=== PATIENT | female | born 1965 | race Asian ===

== ENCOUNTER 2019-10-17 22:05 | Emergency (ER) | payer SELFPAY ==
[~2019-10-17] VITALS: Ht 160 cm; Wt 59.9 kg
[2019-10-17 22:10] VITALS: Ht 160 cm; Wt 59.9 kg
[2019-10-17 23:54] LABS: BASOPHIL % 0.9 % (0-2); RED CELL DISTRIBUTION WIDTH 12.8 % (11.5-14.5)
[2019-10-17 23:55] LABS: PLATELET COUNT 128 x10^3mcL (130-400)
[2019-10-18 00:07] LABS: CALCIUM 9.4 mg/dL (8.5-10.1); CARBON DIOXIDE 26.8 mmol/L (21-32); CHLORIDE SERUM 107 mmol/L (98-107); CREATININE SERUM 0.7 mg/dL (0.6-1.0); GFR1 > 60 mL/min; GLUCOSE SERUM 105 mg/dL (74-106); POTASSIUM SERUM 4.2 mmol/L (3.5-5.1); SODIUM SERUM 143 mmol/L (136-145)
[2019-10-18 00:12] LABS: ALBUMIN 4.2 g/dL (3.4-5.0); ALKALINE PHOSPHATASE 89 U/L (46-116); ALT/SGPT 24 U/L (14-59); AST/SGOT 12 U/L (15-37); BILIRUBIN TOTAL 0.56 mg/dL (0.20-1.00); TOTAL PROTEIN, SERUM 8.1 g/dL (6.4-8.2)
[2019-10-18 00:26] LABS: T4(THYROXINE) 11.1 ug/dL (4.7-13.3)
[2019-10-18 01:14] VITALS: BP 147/89
== END 2019-10-18 01:14 | disposition home or self-care (01) ==
LOC: ED 22:05
PROVIDERS: Emergency Medicine
DX: R07.89 Other chest pain (principal); I10 Essential (primary) hypertension; R00.2 Palpitations; R06.02 Shortness of breath
CPT/HCPCS: 36415; Q0092